=== PATIENT | male | born 1975 | race Caucasian/White ===

== ENCOUNTER 2021-09-30 07:33 | Outpatient (CLI) | payer BC, SELFPAY ==
--- NOTE | 2021-09-30 07:43 | ECHO_ITS ---
Patient Info Name: Stan Gonzalez Age: 46 years : 1975 Gender: Male Ht: 75 in Wt: 300 lbs BSA: 2.73 m2 HR: 69 bpm BP: 145 / 105 mmHg Technical Quality: Good Exam Date: 09/30/2021 8:29 AM Exam Location: [facility] Patient Status: Outpatient Admit Date: 09/30/2021 Staff Ordering Physician: Hina Segura DO Review Manager: Ebenezer Williamson RDCS, RT Attending Provider: Hina Segura DO Referring Physician: Colton RDZ; Exam Type: CA echo doppler color flow Study Info Indications R94.31 - Abnormal electrocardiogram ECG EKG Complete two-dimensional, color flow and Doppler transthoracic echocardiogram is performed. Strain analysis performed. Summary 1. Complete two-dimensional, color flow and Doppler transthoracic echocardiogram is performed. 2. Left ventricular chamber dimension is normal. 3. Left ventricular systolic function is normal, estimated at 60-65%. 4. There is moderately increased left ventricular wall thickness. 5. The left ventricular diastolic function is grade II diastolic dysfunction. 6. E/e' 6 is not elevated. 7. Global longitudinal strain is abnormal at -10.7%. 8. There is moderate aortic valve sclerosis. 9. There is mild aortic valve stenosis with a peak velocity of 260 cm/s, mean gradient of 13 mmHg, and aortic valve area of 1.9 cm2. 10. There is trace pulmonic regurgitation. 11. The aortic root size at the sinus of Valsalva is borderline dilated at 4.1 cm. Left Ventricle E/e' 6 is not elevated. Global longitudinal strain is abnormal at -10.7%. Left ventricular chamber dimension is normal. Left ventricular systolic function is normal, estimated at 60-65%. There is moderately increased left ventricular wall thickness. The left ventricular diastolic function is grade II diastolic dysfunction. Right Ventricle Right ventricular systolic function is normal and with normal TAPSE 2.3 cm. Right ventricular chamber dimension is normal. Left Atria Left atrial chamber dimension is normal. Right Atria Right atrial chamber dimension is normal. Aortic Valve The aortic valve is trileaflet. There is moderate aortic valve sclerosis. There is mild aortic valve stenosis with a peak velocity of 260 cm/s, mean gradient of 13 mmHg, and aortic valve area of 1.9 cm2. There is no aortic valve regurgitation. Pulmonic Valve There is trace pulmonic regurgitation. Mitral Valve There is no mitral valve stenosis. There is no mitral valve regurgitation. Tricuspid Valve There is no tricuspid valve regurgitation. Pericardium/Pleural There is no pericardial effusion. Inferior Vena Cava Normal inferior vena cava with >50% collapse upon inspiration consistent with normal right atrial pressure, 5 mmHg. Aorta The aortic root size at the sinus of Valsalva is borderline dilated at 4.1 cm. Left Ventricular Outflow Tract Name Value Normal LVOT 2D LVOT Diameter 2.5 cm LVOT Doppler LVOT Peak Gradient 4 mmHg LVOT Mean Gradient 2 mmHg LVOT VTI 22 cm LVOT VTI/AV VTI Ratio
== END 2021-09-30 07:34 | disposition home or self-care (01) ==
LOC: ANHCARD 07:34
PROVIDERS: PCP Internal Medicine; Visit Provider Family Medicine
DX: R94.31 Abnormal electrocardiogram [ECG] [EKG] (principal)
CPT/HCPCS: 93306

== ENCOUNTER 2021-10-08 12:56 | Outpatient (CLI) | payer BC, SELFPAY ==
--- NOTE | ~2021-10-08 | CT_ITS ---
EXAMINATION: CTA chest DATE: 10/08/2021 13:33 INDICATION: Borderline aortic root dilatation on echocardiogram TECHNIQUE: Computed tomography (CT) of the chest was performed with 100 CC Omnipaque 350 intravenous contrast. Automated exposure control and iterative reconstruction technique were employed. Exam dose: 833.96 mGy-cm total exam DLP. COMPARISON: None FINDINGS: Cardiomegaly. No pericardial effusion. There is aortic valve calcification. The ascending aorta measures up to 4.6 cm transverse diameter. The aortic arch measures 2.6 cm diamet er. Descending thoracic aorta measures approximately 2.4 cm diameter. No thoracic aortic dissection. No hilar or mediastinal mass lesion or lymphadenopathy. Mild predominantly dependent bilateral lower lobe atelectasis. No pulmonary consolidation or pulmonar y mass lesion is detected. Diffuse hepatic steatosis. Normal splenic size. Included portions of the adrenal glands are normal. Very small sliding hiatal hernia. IMPRESSION: Aortic valve calcification with dilatation of the ascending aorta up to 4.6 cm diameter Reviewed, dictated and finalized at [facility]. Reviewed, dictated and finalized at location [facility].
[2021-10-08 13:30] LABS: Estimated Glomerular Filt Rate > 60
== END 2021-10-08 12:57 | disposition home or self-care (01) ==
PROVIDERS: PCP Internal Medicine; Visit Provider Internal Medicine
DX: I77.810 Thoracic aortic ectasia (principal); I35.1 Nonrheumatic aortic (valve) insufficiency
CPT/HCPCS: 71275; Q9967

== ENCOUNTER 2021-10-17 07:40 | Outpatient (CLI) | payer BC, SELFPAY ==
--- NOTE | 2021-10-21 13:56 | WPDHOMESLEEP ---
Sleep Study - Home Unattended Date of Study: 10/17/21 Ordering Provider: Hina Segura DO Interpreting Provider: Hina Segura DO Home Sleep Study Type: Apnea Link Air Height: 1.93 m Weight: 136.078 kg Body Mass Index: 36.5 Neck Circumference (inches): 18.25 [place]: 9 Reason for Sleep Study Snoring Sleep History The patient is a 46-year-old male with hypertension, newly diagnosed ascending aortic aneurysm, hypogonadism, vitamin-D deficiency and hypogonadism that had a sleep study ordered by his primary care physician for evaluation of sleep apnea. 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 The patient occasionally awakens from sleep short of breath. He occasionally awakens at night with heartburn, belching or cough. He frequently snores and is frequently loud enough that others complain. He frequently has trouble sleeping when he has a cold. He occasionally wakes up gasping for air throughout the night. He denies having breathing problems at night observed by himself or others. He denies sweating excessively at night. He denies having heart palpitations or irregular heartbeats during the night. He occasionally falls asleep during the day but never while driving. He denies having trouble at school or work due to sleepiness. He denies sleep paralysis, cataplexy and hypnagogic / hypnopompic hallucinations. He denies feeling afraid to go to sleep. He rarely has nightmares. He occasionally remembers his dreams. He occasionally has thoughts racing through his mind. He occasionally feels sad or depressed. He rarely has anxiety. He frequently has muscular tension. He frequently notices parts of his body jerk. He denies kicking during the night. He denies having crawling and aching feelings in his legs as well as leg pain during the night. He denies grinding his teeth during sleep and awakening with morning jaw pain. He denies being bothered by pain during the day and being awakened by pain during the night. He occasionally wakes up feeling stiff in morning. He denies waking up with sore achy muscles. He denies waking up with pain in the neck, spine or other joints. The patient does not have a set bedtime or wake-up time due to work. He works swing shift. He is able to fall asleep immediately. He wakes up 0-5x/night. he will stay in bed for a few minutes after waking up in the morning. He currently lives with his . the patient does not consume any caffeinated beverages within 2 hours of bedtime. He does not engage in physical exercise before bedtime. He will read and watch television before falling asleep. He will take naps in the afternoon or the evening but they are not refreshing. He will drink up to 16 oz of caffeinated beverage per day. He will have up to 4 alcoholic beverages per day. He quit smoking cigarettes 10 years ago. He denies recreational drug use. [facility], LATER [facility] Past Medical History Medical History (Updated 10/21/21 @ 14:13 by Hina Segura DO) ACL injury tear Right knee Aortic root dilation Family history of diabetes mellitus (DM) Family history of premature coronary artery disease Hypertension Obesity (BMI 30-39.9) Seasonal allergies Surgical History Surgical History History of ankle surgery Left ankle - 1995 Family History Family History Father Diabetes mellitus CHF (congestive heart failure) Grandparent Heart disease Social History Social History Smoking status: Current some day smoker Tobacco type: cigars Alcohol intake: current Drinks per week: 12 Substance use: never Medications Home Medications Medication Instructions Recorded Confirmed Type multivitamin,oi-mrxu-lhjvryny 1 tablet PO DAILY 08/22/19 10/15/21 History omega 6-xad-ggo-fish oil 1,000 mg 1 cap PO DAILY 08/22/19
[2021-10-21 14:17] VITALS: BMI 36.5
== END 2021-10-18 15:39 | disposition home or self-care (01) ==
LOC: ANHCSM 07:55
PROVIDERS: PCP Internal Medicine; Visit Provider Family Medicine
DX: G47.33 Obstructive sleep apnea (adult) (pediatric) (principal)
CPT/HCPCS: 95806

== ENCOUNTER 2021-11-27 07:31 | Outpatient (CLI) | payer BC, SELFPAY ==
[2021-12-18 19:32] VITALS: BMI 36.3
--- NOTE | 2021-12-18 19:32 | WPDSLEEPSTUD ---
Sleep Study Date of Study: 11/27/21 Ordering Provider: Hina Segura DO Interpreting Physician: Hina Segura DO Sleep Study Type: CPAP Titration Height: 1.92 m Weight: 133.81 kg Body Mass Index: 36.3 Neck Circumference (inches): 18 [place]: 9 Reason for Sleep Study The patient had a HSAT on 10/17/2021 that showed an AHI of 38.5. Sleep History The patient is a 46-year-old male with hypertension, newly diagnosed ascending aortic aneurysm, hypogonadism, vitamin-D deficiency and hypogonadism that had a sleep study ordered by his primary care physician for evaluation of sleep apnea.? 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 The patient occasionally awakens from sleep short of breath.? He occasionally awakens at night with heartburn, belching or cough.? He frequently snores and is frequently loud enough that others complain.? He frequently has trouble sleeping when he has a cold.? He occasionally wakes up gasping for air throughout the night.? He denies having breathing problems at night observed by himself or others.? He denies sweating excessively at night.? He denies having heart palpitations or irregular heartbeats during the night.? He occasionally falls asleep during the day but never while driving.? He denies having trouble at school or work due to sleepiness.? He denies sleep paralysis, cataplexy and hypnagogic / hypnopompic hallucinations.? He denies feeling afraid to go to sleep.? He rarely has nightmares.? He occasionally remembers his dreams.? He occasionally has thoughts racing through his mind.? He occasionally feels sad or depressed.? He rarely has anxiety.? He frequently has muscular tension.? He frequently notices parts of his body jerk.? He denies kicking during the night.? He denies having crawling and aching feelings in his legs as well as leg pain during the night.? He denies grinding his teeth during sleep and awakening with morning jaw pain.? He denies being bothered by pain during the day and being awakened by pain during the night.? He occasionally wakes up feeling stiff in morning.? He denies waking up with sore achy muscles.? He denies waking up with pain in the neck, spine or other joints.? The patient does not have a set bedtime or wake-up time due to work.? He works swing shift.? He is able to fall asleep immediately.? He wakes up 0-5x/night.? he will stay in bed for a few minutes after waking up in the morning.? He currently lives with his . the patient does not consume any caffeinated beverages within 2 hours of bedtime.? He does not engage in physical exercise before bedtime.? He will read and watch television before falling asleep.? He will take naps in the afternoon or the evening but they are not refreshing.? He will drink up to 16 oz of caffeinated beverage per day.? He will have up to 4 alcoholic beverages per day.? He quit smoking cigarettes 10 years ago.? He denies recreational drug use. [facility] Past Medical History Medical History ACL injury tear Right knee Aortic root dilation Family history of diabetes mellitus (DM) Family history of premature coronary artery disease Hypertension Obesity (BMI 30-39.9) Seasonal allergies Surgical History Surgical History History of ankle surgery Left ankle - 1995 Family History Family History Father Diabetes mellitus CHF (congestive heart failure) Grandparent Heart disease Social History Social History Smoking status: Current some day smoker Tobacco type: cigars Alcohol intake: current Drinks per week: 12 Substance use: never Medications Home Medications Medication Instructions Recorded Confirmed Type multivitamin,yb-rnoj-bgebloal 1 tablet PO DAILY 08/22/19 10/15/21 History (Complete Multivitamin ta
== END 2021-11-28 06:05 | disposition home or self-care (01) ==
LOC: ANHCSM 07:32
PROVIDERS: PCP Internal Medicine; Visit Provider Family Medicine
DX: G47.33 Obstructive sleep apnea (adult) (pediatric) (principal)
CPT/HCPCS: 95811

== ENCOUNTER 2022-04-22 08:16 | Outpatient (CLI) | payer BC, SELFPAY ==
--- NOTE | ~2022-04-22 | CT_ITS ---
EXAMINATION: CTA chest abdomen pelvis DATE: 04/22/2022 10:02 INDICATION: Dilated aortic root. TECHNIQUE: Computed tomographic angiography (CTA) of the chest, abdomen, and pelvis was performed wit h 100 mL Omnipaque-350 intravenous contrast. Automated exposure control and iterative reconstruction technique were employed. The dose-length product was 2012.56 mGy-cm. Maximum intensity projection 3D- reconstructions of the aorta and other arteries were constructed by the technologist on a separate wo rkstation. COMPARISON: Chest CT 10/08/2021 FINDINGS: CHEST CTA: The lungs demonstrate mild atelectasis. No pleural effusion. Cardiomegaly is noted. There are calcifi cations of the aortic valve. No pericardial effusion. The aorta measures 4.1 cm at the sinuses of Susan meg, 3.9 cm at the sinotubular junction, 4.0 cm in mid ascending aorta, 2.7 cm at the isthmus, and 2.4 cm in the mid descending aorta. There is a small sliding hiatal hernia. There is mild thoracic sp ondylosis. ABDOMEN AND PELVIS CTA: There is a 5 mm cyst in the liver. The gallbladder, spleen, pancreas, adrenal glands, and kidneys are normal. There is a left inguinal hernia containing fat. There are no dilated loops of bowel. The remy endix is normal. There are no pathologically enlarged lymph nodes. There is no free intraperitoneal f luid. Abdominal aorta is normal in caliber. There is mild aortic atherosclerosis. There is no signifi cant stenosis of celiac axis, superior mesenteric artery, the renal arteries, or inferior mesenteric artery. There is moderate lower lumbar spondylosis. IMPRESSION: 1. Ectasia of ascending aorta measuring 4.1 cm at the sinuses of Valsalva. Reviewed, dictated and finalized at location [facility]. 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
[2022-04-22 09:37] LABS: Estimated Glomerular Filt Rate > 60
== END 2022-04-22 08:17 | disposition home or self-care (01) ==
PROVIDERS: PCP Internal Medicine; Visit Provider Thoracic Surgery (Cardiothoracic Vascular Surgery)
DX: I77.810 Thoracic aortic ectasia (principal)
CPT/HCPCS: 71275; 74174; Q9967

== ENCOUNTER 2022-04-28 10:08 | Outpatient (CLI) | payer BC, SELFPAY ==
--- NOTE | ~2022-04-28 | CT_ITS ---
EXAMINATION: CTA brain carotid DATE: 04/28/2022 10:34 INDICATION: Thoracic aortic aneurysm without rupture. TECHNIQUE: Computed tomographic angiography (CTA) of the head was performed without and with 100 mL O mnipaque-350 intravenous contrast. CTA of the neck was performed with intravenous contrast. Automated exposure control and iterative reconstruction technique were employed. The dose-length product was 1 846.22 mGy-cm. Maximum intensity projection and volume rendered 3D-reconstructions were created by susie chavez technologist on a separate workstation. COMPARISON: None. FINDINGS: HEAD CTA: There is no intracranial hemorrhage, acute infarction, or abnormal intracranial mass lesion . There are scattered areas of low attenuation in the cerebral white matter. The ventricles are jodi l in size. There is mild mucosal thickening in the ethmoid sinuses. The orbits are normal. The mastoi d air cells are normal. Vertebral artery is dominant. There is no significant stenosis of basilar art salima or the posterior cerebral arteries. The posterior communicating arteries are normal. There is no significant stenosis of the intracranial internal carotid arteries or anterior or anterior or middle cerebral arteries. Anterior communicating artery is normal. There is no aneurysm. NECK CTA: There are no pathologically enlarged lymph nodes. There is no significant stenosis of the v ertebral arteries. There is plaque in the proximal internal carotid arteries. There is 0% stenosis of the proximal right internal carotid artery relative to normal distal artery lumen diameter (NASCET c riteria). There is 0% stenosis of the proximal left internal carotid artery relative to normal distal artery lumen diameter. There is mild cervical spondylosis. 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 IMPRESSION: 1. Mild nonspecific cerebral white matter disease, which likely represents chronic small vessel ische carrie disease. 2. No aneurysm or significant intracranial arterial stenosis. 3. 0% stenosis of the proximal internal carotid arteries relative to normal distal artery lumen diame ters (NASCET criteria). Reviewed, dictated and finalized at location A. 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 2. No aneurysm or significant intracranial arterial stenosis. 3. 0% stenosis of the proximal internal carotid arteries relative to normal dis vahe artery lumen diameters (NASCET criteria).
== END 2022-04-28 10:09 | disposition home or self-care (01) ==
PROVIDERS: PCP Internal Medicine
DX: I71.20 Thoracic aortic aneurysm, without rupture, unspecified (principal); R93.0 Abnormal findings on diagnostic imaging of skull and head, not elsewhere classified
CPT/HCPCS: 70496; 70498; Q9967

== ENCOUNTER 2022-10-13 12:23 | Outpatient (CLI) | payer BC, SELFPAY ==
--- NOTE | 2022-10-13 | ECHO_ITS ---
Patient Info Name: Stan Gonzalez Age: 47 years : 1975 Gender: Male Ht: 76 in Wt: 300 lbs BSA: 2.75 m2 HR: 68 bpm BP: 155 / 103 mmHg Heart Rhythm: Sinus Arrhythmia Exam Date: 10/13/2022 1:23 PM Exam Location: [facility] Patient Status: Outpatient Admit Date: 10/13/2022 Staff Ordering Physician: Newton Soares MD Breaker Hand: Meghana Ramey RDCS Attending Provider: Newton Soares MD Referring Physician: Rodger UMANZOR; Exam Type: CA echo doppler color flow Study Info Indications I71.2 - Thoracic aortic aneurysm, without rupture Complete two-dimensional, color flow and Doppler transthoracic echocardiogram is performed. Summary 1. Complete two-dimensional, color flow and Doppler transthoracic echocardiogram is performed. 2. Left ventricular chamber dimension is normal. 3. Left ventricular systolic function is normal, estimated at 60-65%. 4. The left ventricular diastolic function is grade II diastolic dysfunction. 5. E/e' 7 is not elevated. 6. Left atrial chamber dimension is mildly enlarged. 7. There is moderate aortic valve sclerosis. 8. There is mild aortic valve stenosis with a peak velocity of 264 cm/s, mean gradient of 13 mmHg, and aortic valve area of 2.0 cm2. 9. There is trace tricuspid valve regurgitation. 10. No pulmonary hypertension, estimated pulmonary arterial systolic pressure is 33 mmHg. 11. The prox ascending aorta size is mildly dilated at 4.2 cm. Left Ventricle E/e' 7 is not elevated. Left ventricular chamber dimension is normal. Left ventricular systolic function is normal, estimated at 60-65%. The left ventricular diastolic function is grade II diastolic dysfunction. Right Ventricle Right ventricular systolic function is normal and with normal TAPSE 1.8 cm. Right ventricular chamber dimension is normal. Left Atria Left atrial chamber dimension is mildly enlarged. Right Atria Right atrial chamber dimension is normal. Aortic Valve The aortic valve is trileaflet. There is moderate aortic valve sclerosis. There is mild aortic valve stenosis with a peak velocity of 264 cm/s, mean gradient of 13 mmHg, and aortic valve area of 2.0 cm2. There is no aortic valve regurgitation. Pulmonic Valve There is no pulmonic regurgitation. Mitral Valve There is no mitral valve stenosis. There is no mitral valve regurgitation. Tricuspid Valve There is trace tricuspid valve regurgitation. No pulmonary hypertension, estimated pulmonary arterial systolic pressure is 33 mmHg. Pericardium/Pleural There is no pericardial effusion. Inferior Vena Cava Normal inferior vena cava with >50% collapse upon inspiration consistent with normal right atrial pressure, 5 mmHg. Aorta The prox ascending aorta size is mildly dilated at 4.2 cm. The aortic root size at the sinus of Valsalva is normal. Left Ventricular Outflow Tract Name Value Normal LVOT 2D LVOT Diameter 2.7 cm LVOT Doppler LVOT Peak Gradient 2 mmHg LVOT Mean Gradient 1 mmHg LVOT VTI 20 cm LVOT VTI/AV VTI Ratio 0.4 LVOT Stroke Volume 119 ml LVOT CO
--- NOTE | ~2022-10-13 | CT_ITS ---
CT Scan of the Chest without Contrast: Clinical Indication: Thoracic aortic aneurysm Technique: Contiguous sections were acquired throughout the chest without intravenous contrast. Dose reduction technique was used on this scan by utilizing automated exposure control and iterative recon struction technique. The dose-length product (DLP) was 541.06 mGy-cm. COMPARISON: 04/22/2022 Findings: There is no evidence of any significant mediastinal, hilar or axillary lymphadenopathy. Ascending aor ta measures up to 4.4 cm in maximum transverse diameter. There is no evidence of pleural or pericardial effusion. The lungs are clear, aside from minimal dependent atelectatic changes. Images through the upper abdomen reveal no abnormalities. Impression: Mild ascending aortic aneurysm measuring 4.4 cm in maximum transverse diameter. Reviewed, dictated and finalized at location . Impression: Mild ascending aortic aneurysm measuring 4.4 cm in maximum transverse diameter.
== END 2022-10-13 12:24 | disposition home or self-care (01) ==
PROVIDERS: PCP Internal Medicine
DX: I71.20 Thoracic aortic aneurysm, without rupture, unspecified (principal)
CPT/HCPCS: 71250; 93306